=== PATIENT | male | born 1995 | race Caucasian/White ===

== ENCOUNTER 2017-01-21 17:50 | Emergency (ER) | payer OTHER ==
[~2017-01-21] VITALS: Ht 170.2 cm; Wt 61.2 kg
[2017-01-21] MEDS ORDERED: ALEV220C2 PO (18:17)
--- NOTE | 2017-01-21 18:53 | REP ---
Clinical: Trauma. Technique: AP, lateral, bilateral oblique views of the left elbow. Findings: No definite acute fracture or dislocation is appreciated. However, lateral view demonstrates elevation of the anterior fat pad consistent with underlying effusion/hemarthrosis and highly suggestive of occult fracture. The posterior fat pad is also elevated and again highly suggestive for underlying occult injury. Overlying soft tissue swelling noted. Impression: Elevation of the anterior and posterior fat pad with surrounding soft tissue swelling is highly suggestive of occult fracture/injury. Signed by Mandeep Peguero MD 01/21/2017 06:45 P
[2017-01-21 19:09] VITALS: BP 153/74
--- NOTE | 2017-01-23 09:33 | ED PDOC ---
Post-Departure Follow-Up [facility] faxed formal report of left elbow film for fu Hugh Hayes MD January 23, 2017 09:33
== END 2017-01-21 19:16 | disposition home or self-care (01) ==
LOC: M ED 18:58
DX: M25.022 Hemarthrosis, left elbow (principal); W01.198A Fall on same level from slipping, tripping and stumbling with subsequent striking against other object, initial encounter; Y92.099 Unspecified place in other non-institutional residence as the place of occurrence of the external cause; Y93.01 Activity, walking, marching and hiking; Y99.9 Unspecified external cause status